=== PATIENT | female | born 1975 | race Two or more races ===

== ENCOUNTER 2016-08-03 13:29 | Emergency (ER) | payer MEDICAID ==
--- NOTE | 2016-08-03 14:09 | ED Physician Chart ---
Chief Complaint/HPI - Patient Information Date Seen:: 08/03/16 Time Seen:: 13:50 Chief Complaint:: headache History of Present Illness:: This patient developed left occipital and frontal headache 2 days ago. Headache was of gradual onset. This is the worst headache of her entire life. One week ago she started a menstrual period which was very heavy. Patient has been nauseated but had no vomiting. She did not have a fever Allergies:: Allergies Allergy/AdvReac Type Severity Reaction Status Date / Time No Known Allergies Allergy Verified 08/03/16 13:37 Vitals:: Vital Signs - 8 hr 08/03/16 13:30 Temp 98.1 F HR 75 RR 16 BP 101/66 O2 Sat % 98 Historian:: Patient, Family Member Review:: Nurse's Note Reviewed Review of Systems - Review of Systems General/Constitutional: No fever, No chills Skin: No skin lesions Head: Headache Eyes: No loss of vision, Other (patient has slight photophobia) ENT: No earache Neck: No neck pain Cardio Vascular: No chest pain, No palpitations Pulmonary: No SOB GI: Nausea, No vomiting, No diarrhea G/U: No dysuria Musculoskeletal: No bone or joint pain, No back pain Psychiatric: No prior psych history, No depression Hematopoietic: No bruising, No lymphadenopathy Allergic/Immuno: No urticaria Neurological: No syncope, No focal symptoms Past Medical History - Past Medical History Past Medical History: Other (ovarian cysts) Family History: None Social History: Non Smoker, Alcohol, Other (occasional alcohol only) Surgical History: other (peptic ulcer disease) Psychiatricy History: None Medication: None Family Medical History - Family Member Mother History Unknown: Yes Ethnicity: Hx Family Cancer: No Hx Family Hypertension: No Other Medical History: denies family medical history Assessment - Assessment General Assessment: At 1515 patient's headache pain was improved. ED Septic Shock - . Is Septic Shock (SBP<90, OR Lactate>4 mmol\L) present?: No - <6hrs of presentation: Vital Signs: Vital Signs - 8 hr 08/03/16 13:30 Temp 98.1 F HR 75 RR 16 BP 101/66 O2 Sat % 98 Reassessment (Disposition) - Reassessment Reassessment Condition:: Improved - Diagnosis Diagnosis:: Migraine headache - Aftercare/Follow up Instructions Aftercare/Follow-Up Instructions:: Refer to Discharge Instructions Medication Prescribed:: Imitrex 100 mg to take one half to one daily when necessary headache - Patient Disposition Discharge/Transfer:: Home Condition at Disposition:: Stable, Improved ED Discharge Plan - Patient Disposition Instructions: Migraine Headache
== END 2016-08-03 15:30 | disposition home or self-care (01) ==
LOC: ER 13:29
DX: G43.909 Migraine, unspecified, not intractable, without status migrainosus (principal)
CPT/HCPCS: Z7502

== ENCOUNTER 2017-05-19 14:55 | Emergency (ER) | payer MEDICAID ==
--- NOTE | 2017-05-19 15:30 | ED Physician Chart ---
ED Chief Complaint/HPI - Patient Information Date Seen:: 05/19/17 Time Seen:: 15:20 Chief Complaint:: MASS IN HER LEFT BREAST FIRST NOTICED TODAY. History of Present Illness:: THE PT NOTED A MASS ABOUT THE SIZE OF A CHICKEN EGG. IT IS PAINLESS. NO FAMILY HISTORY OF BREAST CA. NO DRAINAGE FROM NIPPLE. NO ASSOCIATED FEVER OR CHILLS. Allergies:: Allergies Allergy/AdvReac Type Severity Reaction Status Date / Time No Known Allergies Allergy Verified 08/03/16 13:37 Vitals:: Vital Signs - 8 hr 05/19/17 15:08 Temp 98.8 F RR 86 BP 120/72 O2 Sat % 99 ED Review of Systems - Review of Systems General/Constitutional: No fever, No chills, No weakness, No diaphoresis, No loss of appetite Skin: No skin lesions, No rash, No bruising ED Past Medical History - Past Medical History Past Medical History: No significant medical hx Social History: Smoker ( QUIT SMOKING RECENTLY.), No Alcohol, No Drug Use, Other ( Lives with her and children. ) Surgical History: other (Tubal ligation.) Family Medical History - Family Member Mother History Unknown: Yes Ethnicity: Hx Family Cancer: No Hx Family Hypertension: No ED Labs/Radiology/EKG Results - Lab Results Results: KNOW LABORATORY OR RADIOGRAPHIC STUDIES INDICATED. Patient was given referral [facility] to obtain a mammogram. ED Assessment - Assessment General Assessment: CASE SUMMARY: the this 42-year-old female discovered a lump in her left breast and came to the emergency department. She denies any pain, nipple discharge, OR . She has no fever, chills, or diaphoresis. On physical examination there was a mass the size of an egg in the lower quadrant in her left breast. She was given a referral to [facility] for further evaluation of her breast mass. Discharged in stable condition. MDM DDX BREAST MASS: I discussed the possibility of a breast cyst, benign tumor, or possible malignancy. Patient was told she required a mammogram and possible biopsy or aspiration. ED Septic Shock - . Is Septic Shock (SBP<90, OR Lactate>4 mmol\L) present?: No - <6hrs of presentation: Vital Signs: Vital Signs - 8 hr 05/19/17 15:08 Temp 98.8 F RR 86 BP 120/72 O2 Sat % 99 ED Reassessment (Disposition) - Reassessment Reassessment Condition:: Unchanged - Diagnosis Diagnosis:: LEFT BREAST MASS. ED Discharge Plan - Patient Disposition Admit/Discharge/Transfer: PT DISCHARGED HOME Condition at Disposition: Stable Instructions: Breast Cyst, Breast Self-Awareness, [id number] Additional Instructions: [facility]
== END 2017-05-19 16:10 | disposition home or self-care (01) ==
LOC: ER 14:55
DX: N63.0 Unspecified lump in unspecified breast (principal); F17.200 Nicotine dependence, unspecified, uncomplicated
CPT/HCPCS: Z7502